=== PATIENT | female | born 1935 | race Caucasian/White ===

== ENCOUNTER 2019-01-26 11:07 | Emergency (ER) | payer MEDICARE, OTHER ==
[~2019-01-26] VITALS: Ht 157.5 cm; Wt 74.8 kg
[2019-01-26] MEDS ORDERED: ASPI-932 (11:21)
[2019-01-26] MEDS ORDERED: LOSA50TA63 (11:21)
[2019-01-26] MEDS ORDERED: PRAV40TA2 (11:21)
[2019-01-26] MEDS ORDERED: ISOS30TA3 (11:21)
[2019-01-26] MEDS ORDERED: PARO30TA3 (11:21)
--- NOTE | 2019-01-26 11:41 | ED Trauma-Multisystem ---
General Chief Complaint: Trauma-Non Activation Stated Complaint: FALL/HEAD INJURY Nursing Triage Note: PT PRESENTS TO ED VIA EMS WITH COMPLAINTS OF FALL WHEN GETTING OUT OF HER VEHICLE AT THE [facility]. PT HAS HEMATOMA TO L FOREHEAD. PT DENIES LOC BACK OR NECK PAIN. PT REPROTS PAIN TO L FOREHEAD. PT PRESENTS TO ED IN CERVICAL COLLAR. Source of Information: Patient Exam Limitations: No Limitations History of Present Illness Date Seen by Provider: Jan 26, 2019 Time Seen by Provider: 11:10 Initial Comments 83-year-old female who presents to the emergency room by [facility] with complaints of a fall when she got out of her vehicle at the [facility]. She reports she lost her footing and fell forward striking her left side of her face onto the pavement. She denies loss of consciousness, neck and back pain. She also complains of right knee pain. She is in c-collar on arrival to the emergency room. She is alert and oriented. Location Injury Occurred: [employer] Occurred: Just Prior to Arrival Pain/Injury Location: Face, Head Associated Symptoms (Fall): Denies Symptoms Allergies and Home Medications Allergies Coded Allergies: No Known Drug Allergies (Unverified , 01/26/19) Patient Home Medication List Home Medication List Reviewed: Yes Review of Systems Review of Systems Constitutional: see HPI; No chills, No fever Musculoskeletal: see HPI, joint pain (right knee pain) Skin: see HPI, other (abrasion to the left side of the face) All Other Systems Reviewed Negative Unless Noted: Yes Past Aztjubt-Igbtec-Jteund Hx Past Med/Social Hx: Reviewed Nursing Past Med/Soc Hx Patient Social History Alcohol Use: Denies Use Recreational Drug Use: No Smoking Status: Former Smoker Former Smoker, Quit: Jan 30, 1993 Recent Foreign Travel: No Contact w/Someone Who Travel: No Recent Infectious Disease Expo: No Physical Abuse: No Sexual Abuse: No Mistreated: No Fear: No Family Medical History Reviewed Nursing Family Hx Physical Exam Vital Signs Vital Signs - First Documented 01/26/19 11:16 Temp 98.3 Pulse 79 Resp 32 B/P (MAP) 160/84 (109) Pulse Ox 96 Height, Weight, BMI Height: 5'2.00" Weight: 165lbs. oz. 74.143427no; BMI Method:Stated General Appearance: No Apparent Distress, WD/WN Head: Contusions, Ecchymosis, Other (abrasion to the left side of the face) Eyes: Bilateral Eye Normal Inspection, Bilateral Eye PERRL, Bilateral Eye EOMI Ears, Nose, Throat: Hearing Grossly Normal, No Evidence of ENT Injury, No Dental Injury Neck: Full Range of Motion, Normal Inspection, Non Tender, Supple Cardiovascular: Regular Rate, Rhythm, No Edema, No Gallop, No JVD, No Murmur, Normal Peripheral Pulses Respiratory: Chest Non Tender, Lungs Clear, Normal Breath Sounds, No Accessory Muscle Use, No Respiratory Distress Gastrointestinal: Normal Bowel Sounds, No Organomegaly, No Pulsatile Mass, Non Tender, Soft Extremity: Normal Capillary Refill, Normal Inspection, No Calf Tenderness, No Pedal Edema, Other (right knee tenderness on palpation. Full range of motion without pain) Neurologic/Psychiatric: Alert, Oriented x3, Normal Mood/Affect Skin: Normal Color, Warm/Dry Progress/Results/Core Measures Results/Orders My Orders Orders - PAXTON DREW Ct Head/Face/Cervical Wo (01/26/19 11:12) Knee, Right, 3 Views (01/26/19 11:12) Dipht,Pertuss(Acell),Tet Adult (Boostrix (01/26/19 12:45) Vital Signs/I&O 01/26/19 01/26/19 01/26/19 11:16 11:20 12:44 Temp 98.3 98.3 98.3 Pulse 79 79 84 Resp 32 32 32 B/P (MAP) 160/84 (109) 160/84 (109) 154/79 (104) Pulse Ox 96 96 96 Blood Pressure Mean: 109 Progress Progress Note : Time: 12:17 Progress Note I have seen and evaluated the patient. I have informed her of her imaging studies. Her wounds were cleaned with normal saline and triple abx ointment was applied and covered with a bandage. She agrees with plan of care, plans for discharge, return precautions were given. Departure Impression Primary Impression: Facial abrasion Additional Impressions: Minor head injury Contusion Fall on same level Disposition: 01 HOME, SELF-CARE Condition: Stable/Unchanged Departure-Patient Inst. Decision time for Depature: 12:17 Referrals: NO,LOCAL PHYSICIAN (PCP/Family) Primary Care Physician Patient Instructions: Closed Head Injury (DC), Skin Abrasions, Contusion (DC) Add. Discharge Instructions: Ice to the sore areas at 20 minute intervals. You may use Tylenol as needed for pain control. Follow-up with your primary care provider within 1 week for recheck. Return back to the emergency room for worsening symptoms or concerns as needed. All discharge instructions reviewed with patient and/or family. Voiced understanding. PAXTON DREW Jan 26, 2019 11:41
--- NOTE | 2019-01-26 11:49 | NUR ---
pt back from ct at this time
--- NOTE | 2019-01-26 11:53 | Diagnostic Imaging Report ---
PROCEDURE: CT head, face, and cervical spine without contrast. TECHNIQUE: Multiple contiguous axial images were obtained through the head, neck, and facial bones without the use of intravenous contrast. Sagittal and coronal reformations through the cervical spine and facial bones were also performed. Auto Exposure Controls were utilized during the CT exam to meet ALARA standards for radiation dose reduction. INDICATION: Fall with head, face, and cervical spine injury. COMPARISON: No prior studies are available for comparison. CT HEAD: Postsurgical changes of left frontal and temporal craniotomy are seen. 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 Ventricles and sulci are appropriate for the patient's age. Moderate periventricular hypodensity is noted consistent with senescent change. No sulcal effacement is seen. There is no midline shift. No acute intra-axial or extra-axial hemorrhage is detected. There is a moderate amount of soft tissue swelling in the left periorbital region as well as in the left frontal scalp. IMPRESSION: 1. Left frontal scalp hematoma and left periorbital soft tissue swelling. 2. Chronic and postsurgical changes. No acute intracranial process is detected. CT CERVICAL SPINE: Curvature of the cervical spine is normal. There is minimal anterolisthesis of C7 on T1. Severe multilevel degenerative disc disease is seen with disc space narrowing and marginal spurring. Endplate sclerosis at the C5-6 level is also noted. No fractures are identified. Prevertebral tissues are within normal limits. Odontoid is intact. IMPRESSION: Severe cervical spondylosis. No acute bony abnormality is detected. CT face: The mandible appears intact. The zygomatic arches are intact. Maxillary sinus eckert and nasal bones are intact. Orbital eckert appear to be intact. Both globes are unremarkable. There is some mild left supraorbital and left frontal scalp swelling. IMPRESSION: Left supraorbital and frontal scalp swelling. No facial bone fracture is seen. Dictated by: Dictated on workstation # [id number]
--- NOTE | 2019-01-26 12:04 | Diagnostic Imaging Report ---
INDICATION: Fall with right knee injury. TIME OF EXAM: 11:43 a.m. FINDINGS: Three views of the right knee demonstrate normal alignment. There is medial and patellofemoral compartmental degenerative change with joint space narrowing and marginal spurring. Lateral compartment is maintained. No fracture, dislocation, or effusion is seen. IMPRESSION: Degenerative changes. No acute bony abnormality is detected. Dictated by: Dictated on workstation # [id number]
[2019-01-26 12:44] VITALS: BP 154/79
[2019-01-26] MEDS ORDERED: TETANUS,DIPTH,PERTUSS P/F (BOOSTRIX) 0.5 ML VIAL IM ONE (12:45)
== END 2019-01-26 12:44 | disposition home or self-care (01) ==
LOC: ER 11:10
DX: S09.90XA Unspecified injury of head, initial encounter (principal); S00.83XA Contusion of other part of head, initial encounter; Z87.891 Personal history of nicotine dependence; V48.4XXA Person boarding or alighting a car injured in noncollision transport accident, initial encounter; Y92.481 Parking lot as the place of occurrence of the external cause
CPT/HCPCS: 70450; 70486; 72125; 73562; 90471; 90715